=== PATIENT | male | born 1950 | race Caucasian/White ===

== ENCOUNTER 2018-03-30 11:53 | Outpatient (CLI) | payer MEDICARE, BC ==
--- NOTE | 2018-03-30 15:35 | MRI ---
MRI OF THE RIGHT KNEE WITHOUT CONTRAST: INDICATION: Medial and anterior right knee pain after fall. COMPARISON: None. FINDINGS: There is a grade II sprain involving the anterior aspect of the MCL, near it femoral attachment. There is articular cartilage fissuring involving the lateral patellar facet measuring 6.5 mm that julia conway near full thickness. The medial meniscus is intact. The lateral meniscus is intact. The ACL, PCL, and LCLC are intact. The extensor mechanism is intact. There is mild chondrosis involving the medial femoral tibial joint compartment. No definite full-thi ckness articular cartilage defect is evident. There is a small ganglion seen within the popliteal hiatus measuring 2.3 cm on image 1 of series 8. IMPRESSION: 1. Grade II proximal medial collateral ligament sprain. 2. Near full-thickness articular cartilage fissuring of the lateral patellar facet. 3. Intraarticular ganglion seen adjacent to the popliteal tendon within the popliteal hiatus measuri ng 2.3 cm. 4. Mild chondrosis of the medial femoral tibial compartment. POS: [facility]
== END 2018-03-30 11:54 | disposition home or self-care (01) ==
LOC: BICMRI 11:53
PROVIDERS: ATTEND Orthopaedic Surgery
DX: M23.91 Unspecified internal derangement of right knee (principal); S83.411A Sprain of medial collateral ligament of right knee, initial encounter

== ENCOUNTER 2020-08-04 22:09 | Emergency (ER) | payer MEDICARE ==
[~2020-08-04 22:09] MED LIST: Iopamidol-370 76% 500 ML 1 ML ONE
[2020-08-04 22:57] LABS: #Eosinphils 0.2 thou/uL (0.0-0.7); #Lymphocytes 2.4 thou/uL (1.20-3.40); #Monocytes 0.7 thou/uL (0.11-0.59); #Neutrophils 6.2 thou/uL (1.40-6.50); %Basophils 1.3 % (0.0-1.0); %Eosinophils 1.9 % (0.0-10.0); %Lymphocytes 24.9 % (21.0-51.0); %Monocytes 7.6 % (0.0-10.0); %Neutrophils 64.4 % (42.0-75.0); Hemoglobin 13.1 g/dL (14.0-18.0); Mean Corpuscular HGB CONC 34.4 g/dL (32.0-36.0); Mean Corpuscular Hemoglobin 33.7 pg (27.0-31.0); Mean Corpuscular Volume 98.1 fL (78.0-98.0); Mean Platelet Volume 7.1 fL (7.4-10.4); Platelet Count 280 thou/uL (130-400); RBC Distribution Width 11.3 % (11.5-14.5); White Blood Cell (WBC) Count 9.6 thou/uL (4.8-10.8)
[2020-08-04 22:58] LABS: #Basophils 0.1 thou/uL (0.0-0.2)
[2020-08-04 23:02] LABS: INR-International Normal Ratio 0.9; PTT 24.8 sec (22.9-36.1); Prothrombin Time 12.6 sec (12.0-14.7)
[2020-08-04] MEDS ORDERED: Morphine 4 MG/ML VIAL ONE (23:06)
[2020-08-04] MEDS ORDERED: Ondansetron PF 4 MG/2 ML Vial ONE (23:06)
[2020-08-04 23:15] LABS: ALT (SGPT) 17 U/L (8-55); AST (SGOT) 26 U/L (5-34); Albumin 3.9 g/dL (3.4-4.8); Alkaline Phosphatase 41 U/L (40-110); Anion Gap 18 mmol/L (10-20); BUN (Urea Nitrogen) 31 mg/dL (8.4-25.7); Bilirubin, Total 0.3 mg/dL (0.2-1.2); Calc. Creatinine Clearance 0 mL/min (70-130); Carbon Dioxide 22 mmol/L (23-31); Chloride 105 mmol/L (98-107); Glucose 140 mg/dL (80-115); Potassium 3.7 mmol/L (3.5-5.1); Protein, Total 6.9 g/dL (5.8-8.1); Sodium 141 mmol/L (136-145)
--- NOTE | 2020-08-04 23:43 | CT ---
Exam: CT cervical spine without contrast HISTORY: Trauma. Fall. Pain. COMPARISON: None FINDINGS: No craniocervical dissociation. Appropriate alignment of the lateral masses of C1 and C2. Intact odon toid process Appropriate alignment of the facets. Straightening of cervical lordosis may be due to patient position, muscle spasm or cervical collar. Soft tissue neck structures: There appears to be atrophy of the left longus capitis and longus coli m uscle. No prevertebral soft tissue swelling. No acute abnormality in the visualized soft tissue neck structures. There does appear to be fatty replacement of the intrinsic muscles of the tongue. Co rrelate clinically. Upper mediastinum and lung apices: Unremarkable Central spinal canal: Varying degrees of central canal stenosis and foraminal narrowing on the basis of degenerative change. Vertebral bodies: Cervical spine vertebral body height is maintained. No fracture. IMPRESSION: 1. No cervical spine fracture 2. Straightening of cervical lordosis as detailed above. If there is concern for ligament injury, con per diem physical therapist assistant MRI 3. Atrophy of the intrinsic muscles of the tongue along with diminutive left longus coli longus capit is muscle. Correlate clinically.
--- NOTE | 2020-08-04 23:47 | CT ---
Exam: Head CT without contrast HISTORY: Hypotension. Witnessed fall. COMPARISON: none FINDINGS: Hemorrhage: No intraparenchymal hemorrhage or extra-axial hematoma. Brain parenchyma: Cortical carl-white matter differentiation is preserved. No mass effect or midline shift. Basilar cisterns are patent.Chronic small vessel ischemic changes of the white matter Ventricular system: Ventricles and sulci are patent and symmetric. Calvarium: Intact. Sinuses and mastoid air cells: Adequate aeration. Additional findings: There does appear to be calcification involving the distal right M1 segment. Pos sibility of significant stenosis cannot be excluded. IMPRESSION: 1. No intracranial posttraumatic sequelae 2. Prominence and calcification of the distal right M1 segment. Better interrogation with a CT angiog julia of the [place] is recommended to assess for possible stenosis.
--- NOTE | 2020-08-04 23:54 | CT ---
Exam: Chest CT with contrast Abdomen CT with contrast Pelvic CT with contrast Thoracic and lumbar spine CT HISTORY: Fall. Hypotension. Pain. Correlation: None COMPARISON: None FINDINGS: Chest CT: Mediastinum: No mass, lymphadenopathy or hematoma. Aorta: Atherosclerosis without aneurysm, dissection or periaortic stranding Heart: Normal heart size. No significant pericardial fluid Trachea and central bronchi: Patent Pleural spaces: No pleural effusion Right lung: No mass, consolidation or contusion. There is scarring and atelectasis in the dependent p ortion of the lung parenchyma Left lung:No mass, consolidation or contusion. There is scarring and atelectasis in the dependent por tion of the lung parenchyma Pneumothorax: None Abdomen CT: Gallbladder: Surgically absent Portal vein: Patent Liver: Appropriate enhancement. Spleen: Appropriate enhancement Pancreas: Appropriate enhancement Adrenal glands: Appropriate enhancement Lymphadenopathy: No gastrohepatic, retrocrural or periportal lymphadenopathy Kidneys: Symmetric enhancement. Bilaterally no obstructive uropathy. Exophytic cyst emanates from the lower pole of the left kidney measuring 4.1 cm. Mesentery: No mass, lymphadenopathy, free air or free fluid Alimentary canal: Limited evaluation by the lack of oral contrast. No evidence of a small bowel obstr uction. Normal ileocecal junction. Scattered fecal material in a nondistended, nondilated colon. Diverticulosis, without evidence of diverticulitis. Normal caliber appendix. Pelvis CT: No pelvic mass, lymphadenopathy, free air or free fluid. Presacral fat is preserved. Unremarkable urinary bladder. Osseous structures: Chest: Clavicles, scapula and sternum are intact. No evidence of a left or right rib fracture. Pelvis:Sacrum is intact. Intact iliac wings, and obturator rings. No evidence of a left or right hip fracture. Thoracic and lumbar spine CT:Thoracic and lumbar spine vertebral body heights are maintained. No frac ture or malalignment. IMPRESSION: 1. No posttraumatic change in the chest, abdomen or pelvis 2. Additional findings as detailed above.
== END 2020-08-05 01:09 | disposition home or self-care (01) ==
LOC: ERS 22:09
DX: S16.1XXA Strain of muscle, fascia and tendon at neck level, initial encounter (principal); I12.9 Hypertensive chronic kidney disease with stage 1 through stage 4 chronic kidney disease, or unspecified chronic kidney disease; N18.9 Chronic kidney disease, unspecified; M54.6 Pain in thoracic spine; E11.22 Type 2 diabetes mellitus with diabetic chronic kidney disease; Z79.84 Long term (current) use of oral hypoglycemic drugs; Z79.899 Other long term (current) drug therapy; Z79.01 Long term (current) use of anticoagulants; W18.30XA Fall on same level, unspecified, initial encounter; Y92.009 Unspecified place in unspecified non-institutional (private) residence as the place of occurrence of the external cause; Z87.891 Personal history of nicotine dependence
CPT/HCPCS: 36415; 70450; 71260; 72125; 74177; 80053; 84484; 85025; 85610; 85730; 96374; 96375; J2270; J2405; Q9967